=== PATIENT | female | born 1955 | race Two or more races ===

== ENCOUNTER 2020-06-13 11:31 | Emergency (ER) | payer OTHER ==
[~2020-06-13] VITALS: Ht 154.9 cm; Wt 67.1 kg
[2020-06-13 11:50] VITALS: BP 140/76
--- NOTE | 2020-06-13 12:37 | Diagnostic Imaging Report ---
EXAM: XR Lumbosacral Spine, 2 or 3 Views CLINICAL HISTORY: PAIN TECHNIQUE: Frontal and lateral views of the lumbar spine and sacrum. COMPARISON: None FINDINGS: Bones: No vertebral body height loss to suggest acute fracture. No subluxation. Osteopenia. Mild degenerative changes of the spine. Possible benign-appearing lucency in the L2 vertebral body. Soft tissues: No acute finding. IMPRESSION: No acute abnormality.
--- NOTE | 2020-06-13 12:37 | Diagnostic Imaging Report ---
EXAM: XR Left Shoulder Complete, 2 or More Views CLINICAL HISTORY: PAIN TECHNIQUE: Two or more views of the left shoulder. COMPARISON: None FINDINGS: Bones/joints: No displaced fracture or dislocation identified. Joint space is maintained. Osteopenia. Soft tissues: Normal. IMPRESSION: No displaced fracture or dislocation identified.
--- NOTE | 2020-06-13 12:38 | Diagnostic Imaging Report ---
EXAM: XR Left Hip With Pelvis When Performed, 2 or 3 Views CLINICAL HISTORY: PAIN TECHNIQUE: Two or three views of the left hip with pelvis when performed. COMPARISON: None FINDINGS: Bones/joints: No displaced fracture or dislocation identified. Mild degenerative changes of the hips. Osteopenia. Soft tissues: Normal. IMPRESSION: No displaced fracture or dislocation identified.
[2020-06-13] MEDS ORDERED: TYLENOL EXTRA500 MG ORAL (12:46)
[2020-06-13 13:45] VITALS: BP 139/75
--- NOTE | 2020-06-14 20:06 | Emergency Room Report ---
History of Present Illness General Chief Complaint: Back Pain-No Injury Source: Patient Present Illness HPI 64-year-old female presents status post fall. States that approximately 1 week ago she fell at work. Landed on her left side. Complaining of pain to her back left hip and left shoulder. Dull, 6 out of 10, nonradiating. States she is able to bear weight. Was asked by her work to come in and get checked out. No other aggravating relieving factors. Denies any other associated symptoms Allergies: Uncoded Allergies: PENICILLIN (Allergy, Unknown, 06/13/20) COVID-19 Screening Contact w/high risk pt: No Experienced COVID-19 symptoms?: No COVID-19 Testing performed MULE SPINNER: No - Apr 2020 COVID-19 Screening: Negative COVID-19 COVID-19 Testing Source: clinic Patient History Past Medical History: none Past Surgical History: none Pertinent Family History: none Social History: Denies: smoking, alcohol use, drug use Now: No Immunizations: UTD Reviewed Nursing Documentation: PMH: Agreed; PSxH: Agreed Nursing Documentation-PMH Hx Hypertension: Yes Review of Systems All Other Systems: negative except mentioned in HPI Physical Exam Vital Signs Date Time Temp Pulse Resp B/P (MAP) Pulse Ox O2 Delivery O2 Flow Rate FiO2 06/13/20 11:37 98.2 89 16 145/79 (101) 97 Room Air Sp02 EP Interpretation: reviewed, normal General Appearance: no apparent distress, alert, GCS 15, non-toxic Head: normocephalic, atraumatic Eyes: bilateral eye normal inspection, bilateral eye PERRL ENT: hearing grossly normal, normal pharynx, no angioedema, normal voice Neck: full range of motion, supple/symm/no masses Respiratory: chest non-tender, lungs clear, normal breath sounds, speaking full sentences Cardiovascular #1: regular rate, rhythm, no edema Cardiovascular #2: 2+ carotid (R), 2+ carotid (L), 2+ radial (R), 2+ radial (L), 2+ dorsalis pedis (R), 2+ dorsalis pedis (L) Gastrointestinal: normal bowel sounds, non tender, soft, non-distended, no guarding, no rebound Rectal: deferred Genitourinary: normal inspection, no CVA tenderness Musculoskeletal: back normal, normal range of motion, gait/station normal, tender - L shoulder, L hip Neurologic: alert, motor strength/tone normal, oriented x3, sensory intact, responsive, speech normal Psychiatric: judgement/insight normal, memory normal, mood/affect normal, no suicidal/homicidal ideation Reflexes: 3+ bicep (R), 3+ bicep (L), 3+ tricep (R), 3+ tricep (L), 3+ knee (R), 3+ knee (L) Skin: no rash Lymphatic: no adenopathy Medical Decision Making Diagnostic Impression: Primary Impression: Back pain Qualified Codes: M54.5 - Low back pain Additional Impressions: Contusion, hip Qualified Codes: S70.02XA - Contusion of left hip, initial encounter Fall Qualified Codes: W19.XXXA - Unspecified fall, initial encounter ER Course Hospital Course 64-year-old female presents with left hip back and shoulder pain status post fall Differential diagnoses include: Fracture, dislocation, sprain, contusion Clinical course Patient placed on stretcher. After initial history and physical, I ordered x- rays of L-spine and left shoulder and left hip. Patient declined pain meds Xrays read shows no acute fracture/dislocation. Discussed findings with patient. Reassurance given. Safe for discharge and close outpatient follow-up. I will provide Ortho referrals Diagnosis -back pain, hip contusion, fall Stable and discharged to home. apply ice, keep elevated. weight bear as tolerated. Followup with PMD. Return to ED if symptoms recur or worsen Other X-Ray Diagnostic Results Other X-Ray Diagnostic Results #1: X-Ray ordered: L-spine # of Views/Limited Vs Complete: 3 View Indication: Pain EP Interpretation: Yes Interpretation: no dislocation, no soft tissue swelling, no fractures Impression: No acute disease Electronically Signed by: Electronically signed by Rojelio White MD Other X-Ray Diagnostic Results #2: X-Ray ordered: Left hip # of Views/Limited Vs Complete: 3 View Indication: Pain EP Interpretation: Yes Interpretation: no dislocation, no soft tissue swelling, no fractures Impression: No acute disease Electronically Signed by: Electronically signed by Rojelio White MD Other X-Ray Diagnostic Results #3: X-Ray ordered: Left shoulder # of Views/Limited Vs Complete: 3 View Indication: Pain EP Interpretation: Yes Interpretation: no dislocation, no soft tissue swelling, no fractures Impression: No acute disease Electronically Signed by: Electronically signed by Rojelio White MD Last Vital Signs Date Time Temp Pulse Resp B/P (MAP) Pulse Ox O2 Delivery O2 Flow Rate FiO2 06/13/20 13:45 98.2 80 18 139/75 98 Room Air Status: improved Disposition: HOME, SELF-CARE Condition: Stable Scripts Acetaminophen* (TYLENOL EXTRA STRENGTH*) 500 Mg Tablet 500 MG ORAL Q8H PRN for Prn Headache/Temp > 101, #30 TAB 0 Refills Prov: Rojelio White MD 06/13/20 Referrals: NOT CHOSEN IPA/,REFERRING ([facility] 24 hour /7 days a week by Appointment Only [address] [place] [id number] Departure Forms: Return to Work Return to Work Date: Jun 15, 2020 Work Restrictions: No Heavy Lifting Patient Instructions: Contusion-[facility] Rojelio White MD Jun 14, 2020 20:06
== END 2020-06-13 13:45 | disposition home or self-care (01) ==
LOC: EMR 12:39
DX: M54.5 Low back pain (principal); S70.02XA Contusion of left hip, initial encounter; I10 Essential (primary) hypertension; W01.0XXA Fall on same level from slipping, tripping and stumbling without subsequent striking against object, initial encounter; Y93.9 Activity, unspecified; Y92.9 Unspecified place or not applicable; Z88.0 Allergy status to penicillin
CPT/HCPCS: 72020; 73502; 99284